=== PATIENT | female | born 1935 | race Caucasian/White ===

== ENCOUNTER 2018-02-24 09:12 | Emergency (ER) | payer MEDICARE, OTHER ==
[~2018-02-24] VITALS: Ht 160 cm; Wt 81.0 kg
[~2018-02-24 09:12] MED LIST: ADLT ASA LOW81 MG PO; ALPRAZOLAM0.25 MG PO; AMLODIPINE BESYL5 MG PO; ASA/BUT/CAFF OR; ASPIRIN325 MG PO; BUPROPION HCL100 MG PO; BUPROPION100 MG PO; CALCIUM600 M2 OR; CYMBALTA20 MG PO; CYMBALTA30 MG PO; CYTOTEC100 MCG OR; DICLOFENAC SODI50 M1 PO; DICLOFENAC75 MG OR; FISH OIL1000 MG OR; FISH OIL300 MG OR; FLEXERIL5 M1; FLEXERIL5 M1 PO; FLONASE NASAL50 MCG; FUROSEMIDE20 MG PO; GABAPENTIN300 MG PO; HYDRALAZINE25 MG PO; INDERAL10 M1 PO; KLOR-CON M15 OR; LEVOTHYROXIN100 MC1 PO; LOMOTIL2.5 MG; LOSARTAN POT50 MG PO; LOSARTAN POTASS50 MG PO; MAXIDE1 COMBO OR; MAXZIDE-2537.5 MG/TA PO; METO50TA52 PO; NEURONTIN300 MG; OMEPRAZOLE10 MG PO; PREDNISONE10 MG PO; PRILOSEC OTC20 MG; SYNTHROID100 MCG OR; VANCOMYCIN IV; VICODIN1 TAB OR; WELLBUTRI1; ZANTAC 150 OR; [UNRECOGNIZED DRUG - OTHER]; [UNRECOGNIZED DRUG - OTHER] OR; [UNRECOGNIZED DRUG - OTHER] PO
[2018-02-24] MEDS ORDERED: CLONIDINE0.1 MG PO (09:30)
[2018-02-24] MEDS ORDERED: ESCITALOPRAM OX10 MG PO (09:31)
[2018-02-24] MEDS ORDERED: HYDRALAZINE10 MG PO (09:32)
[2018-02-24] MEDS ORDERED: LOSARTAN POTASS50 MG PO (09:32)
[2018-02-24 09:47] LABS: HEMATOCRIT 34.5 % (37.0-47.0); HEMOGLOBIN 11.4 g/dl (12.0-16.0); IMMATURE GRANULOCYTES 0.4 % (0.0-5.0); MEAN CELL VOLUME 92.2 fL CALC (80.0-100.0); MEAN CORPUSCULAR HGB 30.5 pG CALC (26.0-32.0); NEUT# 8.47 thou/uL (2.00-7.15); RED BLOOD COUNT 3.74 mill/uL (4.20-5.60); RED CELL DISTRI WIDTH 12.9 % (11.5-15.5)
[2018-02-24 09:57] LABS: ALBUMIN 3.2 g/dL (3.2-5.0); ALKALINE PHOSPHATASE 76 u/l (38-126); ANION GAP 14 (6-22 (CALC)); BILIRUBIN, TOTAL 0.8 mg/dL (0.0-1.4); BUN 30 mg/dL (8-23); BUN/CREATININE RATIO 22 (12-20 (CALC)); CARBON DIOXIDE 23 mmol/l (22-30); CHLORIDE 104 mmol/l (95-108); CREATININE 1.4 mg/dL (0.5-1.0); GFR 36 ML/MIN (>=60 (CALC)); GFR FOR AFR.AMER. 43 ML/MIN (>=60 (CALC)); POTASSIUM 4.8 mmol/l (3.5-5.1); SGOT/AST 16 u/l (9-36); SGPT/ALT 23 u/l (11-66); SODIUM 136 mmol/l (137-146); TOTAL PROTEIN 5.8 g/dL (6.3-8.2)
[2018-02-24 10:09] LABS: MYOGLOBIN 90 ng/mL (0 - 62)
[2018-02-24 10:38] LABS: URINE BILIRUBIN - DIPSTICK NEGATIVE (NEGATIVE); URINE BLOOD DIPSTICK NEGATIVE (NEGATIVE); URINE COLOR YELLOW; URINE GLUCOSE - DIPSTICK NEGATIVE (NEGATIVE); URINE KETONE TRACE mg/dL (NEGATIVE); URINE LEUK ESTERASE TRACE (NEGATIVE); URINE NITRITE - DIPSTICK NEGATIVE (Negative); URINE PH 5.5 (4.5-8.0); URINE PROTEIN - DIPSTICK TRACE mg/dL (NEG-TRACE); URINE SPECIFIC GRAVITY 1.025; URINE UROBILINOGEN - DIPSTICK 0.2 E.U./dL (0.2)
[2018-02-24 10:40] LABS: URINE CLARITY CLEAR
[2018-02-24 11:03] LABS: TSH, 3RD GENERATION 1.19 uIU/mL (0.47 - 4.68)
[2018-02-24] MEDS ORDERED: ANTIVERT PO (12:50)
[2018-02-24] MEDS ORDERED: ZOFRAN ODT4 MG PO (12:51)
[2018-02-24 13:05] VITALS: BP 127/66
== END 2018-02-24 13:13 | disposition home or self-care (01) ==
LOC: ED 09:12
PROVIDERS: Emergency Medicine
DX: R42 Dizziness and giddiness (principal); E86.0 Dehydration; S13.9XXA Sprain of joints and ligaments of unspecified parts of neck, initial encounter; I10 Essential (primary) hypertension; G45.9 Transient cerebral ischemic attack, unspecified; X58.XXXA Exposure to other specified factors, initial encounter; R94.31 Abnormal electrocardiogram [ECG] [EKG]

== ENCOUNTER 2018-02-27 17:18 | Inpatient (IN) | payer MEDICARE, OTHER ==
[~2018-02-27] VITALS: Ht 160 cm; Wt 82.0 kg
[~2018-02-27 17:18] MED LIST changes: +ANTIVERT PO; +CLONIDINE0.1 MG PO; +ESCITALOPRAM OX10 MG PO; +HYDRALAZINE10 MG PO; +ZOFRAN ODT4 MG PO
[2018-02-27 18:29] LABS: HEMATOCRIT 34.4 % (37.0-47.0); HEMOGLOBIN 11.2 g/dl (12.0-16.0); IMMATURE GRANULOCYTES 0.6 % (0.0-5.0); MEAN CORPUSCULAR HGB 30.3 pG CALC (26.0-32.0); MEAN CORPUSCULAR HGB CONC 32.6 g/L CALC (32.0-36.0); NEUT# 8.96 thou/uL (2.00-7.15); RED BLOOD COUNT 3.7 mill/uL (4.20-5.60); RED CELL DISTRI WIDTH 12.6 % (11.5-15.5)
[2018-02-27 18:39] LABS: ALBUMIN 3.2 g/dL (3.2-5.0); BILIRUBIN, TOTAL 0.8 mg/dL (0.0-1.4); CREATININE 1.4 mg/dL (0.5-1.0); POTASSIUM 4.7 mmol/l (3.5-5.1); TOTAL PROTEIN 5.9 g/dL (6.3-8.2)
[2018-02-27 19:30] VITALS: BP 133/62
[2018-02-28] VITALS (7 sets, daily range): BP systolic 117–163; BP diastolic 48–69
[2018-02-28 06:03] LABS: HEMATOCRIT 34.1 % (37.0-47.0); HEMOGLOBIN 11.1 g/dl (12.0-16.0); IMMATURE GRANULOCYTES 0.7 % (0.0-5.0); MEAN CELL VOLUME 92.7 fL CALC (80.0-100.0); MEAN CORPUSCULAR HGB 30.2 pG CALC (26.0-32.0); MEAN CORPUSCULAR HGB CONC 32.6 g/L CALC (32.0-36.0); NEUT# 6.31 thou/uL (2.00-7.15); RED BLOOD COUNT 3.68 mill/uL (4.20-5.60); RED CELL DISTRI WIDTH 12.6 % (11.5-15.5)
[2018-02-28 06:16] LABS: CREATININE 1.1 mg/dL (0.5-1.0); POTASSIUM 4.6 mmol/l (3.5-5.1)
[2018-02-28 08:38] LABS: C. DIFFICILE TOXIN A&B NEGATIVE (NEGATIVE)
[2018-02-28 17:26] LABS: BARBITURATES NEGATIVE (NEGATIVE); COCAINE NEGATIVE (NEGATIVE); METHADONE NEGATIVE (NEGATIVE); OXCYCODONE NEGATIVE (NEGATIVE); TETRAHYDROCANNABIONOL NEGATIVE (NEGATIVE); TRICYLIC ANTIDEPRESSANTS NEGATIVE (NEGATIVE)
[2018-03-01 00:25] VITALS: BP 148/63
[2018-03-01 05:21] LABS: HEMATOCRIT 34.8 % (37.0-47.0); HEMOGLOBIN 11.2 g/dl (12.0-16.0); IMMATURE GRANULOCYTES 1.9 % (0.0-5.0); MEAN CORPUSCULAR HGB 29.9 pG CALC (26.0-32.0); MEAN CORPUSCULAR HGB CONC 32.2 g/L CALC (32.0-36.0); NEUT# 4.47 thou/uL (2.00-7.15); RED BLOOD COUNT 3.74 mill/uL (4.20-5.60); RED CELL DISTRI WIDTH 12.5 % (11.5-15.5)
[2018-03-01 05:37] LABS: ANION GAP 15 (6-22 (CALC)); BUN 14 mg/dL (8-23); BUN/CREATININE RATIO 16 (12-20 (CALC)); CARBON DIOXIDE 18 mmol/l (22-30); CHLORIDE 107 mmol/l (95-108); CREATININE 0.9 mg/dL (0.5-1.0); GFR 60 ML/MIN (>=60 (CALC)); GFR FOR AFR.AMER. > 60 ML/MIN (>=60 (CALC)); MAGNESIUM 1.7 mg/dL (1.6-2.3); POTASSIUM 4.6 mmol/l (3.5-5.1); SODIUM 135 mmol/l (137-146)
[2018-03-01 08:09] VITALS: BP 132/48
[2018-03-01 09:12] VITALS: BP 122/47
[2018-03-01 12:09] VITALS: BP 133/61
[2018-03-01 16:17] VITALS: BP 122/49
[2018-03-01 19:00] VITALS: BP 159/63
[2018-03-02 00:05] VITALS: BP 145/65
[2018-03-02 04:46] VITALS: BP 158/68
[2018-03-02 05:17] LABS: HEMATOCRIT 30.2 % (37.0-47.0); HEMOGLOBIN 9.9 g/dl (12.0-16.0); MEAN CELL VOLUME 92.1 fL CALC (80.0-100.0); MEAN CORPUSCULAR HGB 30.2 pG CALC (26.0-32.0); MEAN CORPUSCULAR HGB CONC 32.8 g/L CALC (32.0-36.0); RED BLOOD COUNT 3.28 mill/uL (4.20-5.60); RED CELL DISTRI WIDTH 12.4 % (11.5-15.5)
[2018-03-02 05:31] LABS: ANION GAP 10 (6-22 (CALC)); BUN 9 mg/dL (8-23); BUN/CREATININE RATIO 11 (12-20 (CALC)); CARBON DIOXIDE 21 mmol/l (22-30); CHLORIDE 109 mmol/l (95-108); CREATININE 0.8 mg/dL (0.5-1.0); GFR > 60 ML/MIN (>=60 (CALC)); GFR FOR AFR.AMER. > 60 ML/MIN (>=60 (CALC)); MAGNESIUM 1.5 mg/dL (1.6-2.3); POTASSIUM 4.4 mmol/l (3.5-5.1); SODIUM 136 mmol/l (137-146)
[2018-03-02 09:04] VITALS: BP 146/46
[2018-03-02 11:00] VITALS: BP 126/52
[2018-03-02] MEDS ORDERED: CIPROFLOXACN500 MG PO (11:15)
[2018-03-02] MEDS ORDERED: METRONIDAZOL500 MG PO (11:15)
[2018-03-02] MEDS ORDERED: ALPRAZOLAM0.25 MG PO (11:15)
[2018-03-02] MEDS ORDERED: FLORASTOR250 M1 PO (11:15)
== END 2018-03-02 14:49 | DRG 682 ==
LOC: MS2 17:18
PROVIDERS: Internal Medicine; Nurse Practitioner Family; ADMIT Internal Medicine; ATTEND Internal Medicine
DX: N17.9 Acute kidney failure, unspecified (principal); G93.40 Encephalopathy, unspecified; E86.0 Dehydration; K52.9 Noninfective gastroenteritis and colitis, unspecified; I12.9 Hypertensive chronic kidney disease with stage 1 through stage 4 chronic kidney disease, or unspecified chronic kidney disease; N18.9 Chronic kidney disease, unspecified; E03.9 Hypothyroidism, unspecified; F41.9 Anxiety disorder, unspecified; F32.9 Major depressive disorder, single episode, unspecified; E78.5 Hyperlipidemia, unspecified; M19.90 Unspecified osteoarthritis, unspecified site; Z86.73 Personal history of transient ischemic attack (TIA), and cerebral infarction without residual deficits
CPT/HCPCS: J1650

== ENCOUNTER 2018-07-25 11:04 | Observation (INO) | payer MEDICARE, OTHER ==
[2018-07-25] VITALS (14 sets, daily range): BP systolic 117–183; BP diastolic 50–112
[~2018-07-25] VITALS: Ht 154.9 cm; Wt 79.0 kg
[~2018-07-25 11:04] MED LIST changes: +ACETAMINOPHEN P1 TA2 PO; +B121000 MCG PO; +BL POTASSIUM99 MG PO; +CIPROFLOXACN500 MG PO; +D3 PO; +DULOXETINE PO; +FLORASTOR250 M1 PO; +LASIX20 MG PO; +LOSARTAN POT100 MG PO; +LUTEIN PO; +MECLIZINE25 MG PO; +METRONIDAZOL500 MG PO; +VITAMIN A PO; +[UNRECOGNIZED DRUG - OTHER] PO
[2018-07-25 11:49] LABS: URINE BILIRUBIN - DIPSTICK NEGATIVE (NEGATIVE); URINE BLOOD DIPSTICK NEGATIVE (NEGATIVE); URINE COLOR YELLOW; URINE GLUCOSE - DIPSTICK NEGATIVE (NEGATIVE); URINE KETONE NEGATIVE (NEGATIVE); URINE LEUK ESTERASE NEGATIVE (NEGATIVE); URINE NITRITE - DIPSTICK NEGATIVE (Negative); URINE PH 5.5 (4.5-8.0); URINE PROTEIN - DIPSTICK NEGATIVE (NEG-TRACE); URINE SPECIFIC GRAVITY 1.015; URINE UROBILINOGEN - DIPSTICK 0.2 E.U./dL (0.2)
[2018-07-25 11:53] LABS: HEMATOCRIT 40.2 % (37.0-47.0); HEMOGLOBIN 13.4 g/dl (12.0-16.0); IMMATURE GRANULOCYTES 0.4 % (0.0-5.0); MEAN CELL VOLUME 93.5 fL CALC (80.0-100.0); MEAN CORPUSCULAR HGB 31.2 pG CALC (26.0-32.0); MEAN CORPUSCULAR HGB CONC 33.3 g/L CALC (32.0-36.0); NEUT# 5.59 thou/uL (2.00-7.15); RED BLOOD COUNT 4.3 mill/uL (4.20-5.60); RED CELL DISTRI WIDTH 13.6 % (11.5-15.5)
[2018-07-25 12:05] LABS: ALKALINE PHOSPHATASE 82 u/l (38-126); ANION GAP 14 (6-22 (CALC)); BILIRUBIN, TOTAL 0.6 mg/dL (0.0-1.4); BUN 17 mg/dL (8-23); BUN/CREATININE RATIO 22 (12-20 (CALC)); CARBON DIOXIDE 24 mmol/l (22-30); CHLORIDE 106 mmol/l (95-108); CREATININE 0.8 mg/dL (0.5-1.0); GFR > 60 ML/MIN (>=60 (CALC)); GFR FOR AFR.AMER. > 60 ML/MIN (>=60 (CALC)); SGOT/AST 21 u/l (9-36); SODIUM 140 mmol/l (137-146); TOTAL PROTEIN 7.2 g/dL (6.3-8.2)
[2018-07-25 12:17] LABS: MYOGLOBIN 47 ng/mL (0 - 62)
[2018-07-26] VITALS (22 sets, daily range): BP systolic 146–223; BP diastolic 54–117
[2018-07-26 05:25] LABS: HEMATOCRIT 39.6 % (37.0-47.0); HEMOGLOBIN 13.2 g/dl (12.0-16.0); IMMATURE GRANULOCYTES 0.4 % (0.0-5.0); MEAN CELL VOLUME 93.8 fL CALC (80.0-100.0); MEAN CORPUSCULAR HGB 31.3 pG CALC (26.0-32.0); MEAN CORPUSCULAR HGB CONC 33.3 g/L CALC (32.0-36.0); NEUT# 6.81 thou/uL (2.00-7.15); RED BLOOD COUNT 4.22 mill/uL (4.20-5.60); RED CELL DISTRI WIDTH 13.6 % (11.5-15.5)
[2018-07-26 05:41] LABS: ALBUMIN 3.5 g/dL (3.2-5.0); ALKALINE PHOSPHATASE 76 u/l (38-126); ANION GAP 13 (6-22 (CALC)); BUN 15 mg/dL (8-23); BUN/CREATININE RATIO 23 (12-20 (CALC)); CARBON DIOXIDE 24 mmol/l (22-30); CHLORIDE 104 mmol/l (95-108); CREATININE 0.7 mg/dL (0.5-1.0); GFR > 60 ML/MIN (>=60 (CALC)); GFR FOR AFR.AMER. > 60 ML/MIN (>=60 (CALC)); MAGNESIUM 1.7 mg/dL (1.6-2.3); POTASSIUM 3.8 mmol/l (3.5-5.1); SGOT/AST 21 u/l (9-36); SODIUM 137 mmol/l (137-146); TOTAL PROTEIN 6.4 g/dL (6.3-8.2)
[2018-07-27] VITALS (9 sets, daily range): BP systolic 153–207; BP diastolic 51–88
[2018-07-27 05:30] LABS: HEMATOCRIT 40.8 % (37.0-47.0); HEMOGLOBIN 13.8 g/dl (12.0-16.0); IMMATURE GRANULOCYTES 0.4 % (0.0-5.0); MEAN CELL VOLUME 91.9 fL CALC (80.0-100.0); MEAN CORPUSCULAR HGB 31.1 pG CALC (26.0-32.0); MEAN CORPUSCULAR HGB CONC 33.8 g/L CALC (32.0-36.0); NEUT# 6.74 thou/uL (2.00-7.15); RED BLOOD COUNT 4.44 mill/uL (4.20-5.60); RED CELL DISTRI WIDTH 13.6 % (11.5-15.5)
[2018-07-27 05:37] LABS: ALBUMIN 3.6 g/dL (3.2-5.0); ALKALINE PHOSPHATASE 77 u/l (38-126); ANION GAP 13 (6-22 (CALC)); BILIRUBIN, TOTAL 0.9 mg/dL (0.0-1.4); BUN 18 mg/dL (8-23); BUN/CREATININE RATIO 26 (12-20 (CALC)); CARBON DIOXIDE 23 mmol/l (22-30); CHLORIDE 103 mmol/l (95-108); CREATININE 0.7 mg/dL (0.5-1.0); GFR > 60 ML/MIN (>=60 (CALC)); GFR FOR AFR.AMER. > 60 ML/MIN (>=60 (CALC)); MAGNESIUM 1.7 mg/dL (1.6-2.3); POTASSIUM 4.1 mmol/l (3.5-5.1); SGOT/AST 22 u/l (9-36); SODIUM 135 mmol/l (137-146); TOTAL PROTEIN 6.5 g/dL (6.3-8.2)
[2018-07-28 00:01] VITALS: BP 165/81
[2018-07-28 04:44] VITALS: BP 166/67
[2018-07-28 05:44] LABS: HEMATOCRIT 40.9 % (37.0-47.0); HEMOGLOBIN 13.6 g/dl (12.0-16.0); IMMATURE GRANULOCYTES 0.3 % (0.0-5.0); MEAN CELL VOLUME 92.7 fL CALC (80.0-100.0); MEAN CORPUSCULAR HGB 30.8 pG CALC (26.0-32.0); MEAN CORPUSCULAR HGB CONC 33.3 g/L CALC (32.0-36.0); NEUT# 6.61 thou/uL (2.00-7.15); RED BLOOD COUNT 4.41 mill/uL (4.20-5.60); RED CELL DISTRI WIDTH 13.4 % (11.5-15.5)
[2018-07-28 06:07] LABS: ALBUMIN 3.6 g/dL (3.2-5.0); ALKALINE PHOSPHATASE 76 u/l (38-126); ANION GAP 14 (6-22 (CALC)); BILIRUBIN, TOTAL 1.1 mg/dL (0.0-1.4); BUN 19 mg/dL (8-23); BUN/CREATININE RATIO 26 (12-20 (CALC)); CARBON DIOXIDE 23 mmol/l (22-30); CHLORIDE 102 mmol/l (95-108); CREATININE 0.8 mg/dL (0.5-1.0); GFR > 60 ML/MIN (>=60 (CALC)); GFR FOR AFR.AMER. > 60 ML/MIN (>=60 (CALC)); MAGNESIUM 1.7 mg/dL (1.6-2.3); SGOT/AST 23 u/l (9-36); SODIUM 135 mmol/l (137-146); TOTAL PROTEIN 6.4 g/dL (6.3-8.2)
[2018-07-28 07:53] VITALS: BP 164/68
[2018-07-28 11:43] VITALS: BP 160/64
[2018-07-28] MEDS ORDERED: CARVEDILOL6.25 MG PO (15:09)
[2018-07-28] MEDS ORDERED: LOSARTAN POT50 MG PO (15:09)
[2018-07-28] MEDS ORDERED: CARDIZEM CD120 M1 PO (15:09)
[2018-07-28] MEDS ORDERED: ATIVAN1 MG PO (15:10)
[2018-07-28] MEDS ORDERED: PANTOPRAZOLE SO40 M1 PO (15:11)
[2018-07-28] MEDS ORDERED: LEVOTHYROXIN100 MC1 PO (15:11)
== END 2018-07-28 17:02 | disposition home health service (06) ==
LOC: ED 11:04 → ED-I 13:54 → ED 14:14 → ICU 14:15 → MS2 07-26 16:43
PROVIDERS: ADMIT Internal Medicine Nephrology; ATTEND Internal Medicine Nephrology
DX: I16.1 Hypertensive emergency (principal); I10 Essential (primary) hypertension; E03.9 Hypothyroidism, unspecified; F41.1 Generalized anxiety disorder; E78.5 Hyperlipidemia, unspecified; Z86.73 Personal history of transient ischemic attack (TIA), and cerebral infarction without residual deficits; Z96.651 Presence of right artificial knee joint; Z63.4 Disappearance and death of family member; R07.9 Chest pain, unspecified
CPT/HCPCS: J2060

== ENCOUNTER → 2018-09-22 | Outpatient (REF) | payer MEDICARE, OTHER ==
[~2018-09-22] MED LIST changes: +ACETAMINOPHEN500 MG PO; +ALLERGY RELF10 M3 PO; +ATIVAN1 MG PO; +CARDIZEM CD120 M1 PO; +CARVEDILOL3.125 MG PO; +CARVEDILOL6.25 MG PO; +COREG12.5 MG PO; +DICLOFENAC SODI1.5 % TOP; +DICLOFENAC SODI50 MG PO; +GAS RELIEF80 MG PO; +LASIX 20 MG TAB20 MG PO; +PANTOPRAZOLE SO40 M1 PO; +TGT OMEPRAZ20 MG PO; +XANAX0.25 MG PO
[2018-09-22 13:02] LABS: HEMATOCRIT 38.9 % (37.0-47.0); HEMOGLOBIN 13.2 g/dl (12.0-16.0); MEAN CELL VOLUME 93.1 fL CALC (80.0-100.0); MEAN CORPUSCULAR HGB 31.6 pG CALC (26.0-32.0); MEAN CORPUSCULAR HGB CONC 33.9 g/L CALC (32.0-36.0); RED BLOOD COUNT 4.18 mill/uL (4.20-5.60); RED CELL DISTRI WIDTH 12.4 % (11.5-15.5)
[2018-09-22 13:21] LABS: ALBUMIN 4.3 g/dL (3.2-5.0); ALKALINE PHOSPHATASE 81 u/l (38-126); ANION GAP 14 (6-22 (CALC)); BILIRUBIN, TOTAL 0.8 mg/dL (0.0-1.4); BUN 13 mg/dL (8-23); BUN/CREATININE RATIO 18 (12-20 (CALC)); CALCULATED LDLCHOLESTEROL 85 mg/dL (62-129 (CALC)); CARBON DIOXIDE 24 mmol/l (22-30); CHLORIDE 106 mmol/l (95-108); CHOLESTEROL HDL RATIO 2.8 (<4.4 (CALC)); CREATININE 0.7 mg/dL (0.5-1.0); GFR > 60 ML/MIN (>=60 (CALC)); GFR FOR AFR.AMER. > 60 ML/MIN (>=60 (CALC)); HDL CHOLESTEROL 64 mg/dL (>=40); POTASSIUM 3.5 mmol/l (3.5-5.1); SGOT/AST 20 u/l (9-36); SODIUM 141 mmol/l (137-146); TOTAL CHOLESTEROL 181 mg/dl (0-199); TOTAL PROTEIN 7.1 g/dL (6.3-8.2); TOTAL TRIGLYCERIDES 155 mg/dl (30-149); VLDL CHOLESTROL 31 mg/dl (0-48 (CALC))
== END | disposition home or self-care (01) ==
LOC: LAB 12:27
PROVIDERS: ATTEND Internal Medicine
DX: E03.9 Hypothyroidism, unspecified (principal); F41.9 Anxiety disorder, unspecified; I10 Essential (primary) hypertension; Z86.73 Personal history of transient ischemic attack (TIA), and cerebral infarction without residual deficits

== ENCOUNTER 2018-10-03 12:30 | Outpatient (RCR) | payer MEDICARE, OTHER ==
--- NOTE | 2018-09-29 12:04 | NUR ---
Pt. in for treatment team and IOP. Pt. is clean and neat. Alert and oriented times 3. Mood tearful and sad. Affect blunted. Pt. states her [id number] "took my keys and I'm not to drive. She also took my Cymbalta and my arthritis meds are gone". Pt. is scheduled to see PCP, Dr. Laboy, next week. Pt. is informed to discuss medications with her PCP by Hemant Duncan APRN. Pt. is given a copy of medication log by the Program Nurse. Pt. denies any suicidal ideations. Pt. states she will follow up with her medications and report back to the Program Nurse following her appointment with her PCP. Pt. to continue with her current treatment plan. Pt. is attending IOP 2 times a week with a monthly 1:1. Will follow up with the Pt. in one month. Treatment team is concluded.
[~2018-10-03 12:30] MED LIST changes: -CARVEDILOL3.125 MG PO; -DICLOFENAC SODI50 MG PO
[2018-10-10] MEDS ORDERED: CARVEDILOL3.125 MG PO (12:16)
[2018-10-10] MEDS ORDERED: DICLOFENAC SODI50 MG PO (12:17)
== END 2018-10-05 23:59 | disposition still patient (30) ==
LOC: SLIP3 12:30
PROVIDERS: ATTEND Specialist
DX: F41.1 Generalized anxiety disorder (principal); F41.0 Panic disorder [episodic paroxysmal anxiety]; F33.1 Major depressive disorder, recurrent, moderate

== ENCOUNTER 2019-06-10 17:14 | Emergency (ER) | payer MEDICARE, OTHER ==
[~2019-06-10] VITALS: Ht 154.9 cm; Wt 72.0 kg
[~2019-06-10 17:14] MED LIST changes: +CARVEDILOL3.125 MG PO; +DICLOFENAC SODI50 MG PO
[2019-06-10 18:06] LABS: HEMATOCRIT 36.4 % (37.0-47.0); HEMOGLOBIN 12.4 g/dl (12.0-16.0); IMMATURE GRANULOCYTES 0.4 % (0.0-5.0); MEAN CELL VOLUME 91.7 fL CALC (80.0-100.0); MEAN CORPUSCULAR HGB 31.2 pG CALC (26.0-32.0); MEAN CORPUSCULAR HGB CONC 34.1 g/L CALC (32.0-36.0); NEUT# 5.91 thou/uL (2.00-7.15); RED BLOOD COUNT 3.97 mill/uL (4.20-5.60); RED CELL DISTRI WIDTH 11.7 % (11.5-15.5)
[2019-06-10 18:19] LABS: ALBUMIN 4.2 g/dL (3.2-5.0); ALKALINE PHOSPHATASE 91 u/l (38-126); ANION GAP 15 (6-22 (CALC)); BILIRUBIN, TOTAL 0.7 mg/dL (0.0-1.4); BUN 19 mg/dL (8-23); BUN/CREATININE RATIO 24 (12-20 (CALC)); CARBON DIOXIDE 21 mmol/l (22-30); CHLORIDE 95 mmol/l (95-108); CREATININE 0.8 mg/dL (0.5-1.0); GFR > 60 ML/MIN (>=60 (CALC)); GFR FOR AFR.AMER. > 60 ML/MIN (>=60 (CALC)); POTASSIUM 4.1 mmol/l (3.5-5.1); SGOT/AST 21 u/l (9-36); TOTAL PROTEIN 7.2 g/dL (6.3-8.2)
[2019-06-10 18:22] LABS: SODIUM 127 mmol/l (137-146)
[2019-06-10 18:27] LABS: URINE BILIRUBIN - DIPSTICK NEGATIVE (NEGATIVE); URINE BLOOD DIPSTICK NEGATIVE (NEGATIVE); URINE COLOR YELLOW; URINE GLUCOSE - DIPSTICK NEGATIVE (NEGATIVE); URINE KETONE NEGATIVE (NEGATIVE); URINE LEUK ESTERASE NEGATIVE (NEGATIVE); URINE NITRITE - DIPSTICK NEGATIVE (Negative); URINE PH 5.5 (4.5-8.0); URINE PROTEIN - DIPSTICK NEGATIVE (NEG-TRACE); URINE UROBILINOGEN - DIPSTICK 0.2 E.U./dL (0.2)
[2019-06-10 18:31] LABS: MYOGLOBIN 33 ng/mL (0 - 62)
[2019-06-10] MEDS ORDERED: ONDANSETRON4 MG PO (18:59)
[2019-06-10] MEDS ORDERED: ANTIVERT PO (18:59)
[2019-06-10 19:24] VITALS: BP 162/56
== END 2019-06-10 20:03 | disposition home or self-care (01) ==
LOC: ED 17:14
PROVIDERS: Emergency Medicine
DX: R42 Dizziness and giddiness (principal); I10 Essential (primary) hypertension; Z86.73 Personal history of transient ischemic attack (TIA), and cerebral infarction without residual deficits; I45.10 Unspecified right bundle-branch block

== ENCOUNTER 2019-07-04 16:46 | Emergency (ER) | payer MEDICARE, OTHER ==
[~2019-07-04] VITALS: Ht 154.9 cm; Wt 81.8 kg
[~2019-07-04 16:46] MED LIST changes: +ONDANSETRON4 MG PO
[2019-07-04 17:55] LABS: HEMATOCRIT 38.7 % (37.0-47.0); HEMOGLOBIN 13.1 g/dl (12.0-16.0); IMMATURE GRANULOCYTES 0.5 % (0.0-5.0); MEAN CELL VOLUME 92.4 fL CALC (80.0-100.0); MEAN CORPUSCULAR HGB 31.3 pG CALC (26.0-32.0); MEAN CORPUSCULAR HGB CONC 33.9 g/L CALC (32.0-36.0); NEUT# 7.89 thou/uL (2.00-7.15); RED BLOOD COUNT 4.19 mill/uL (4.20-5.60); RED CELL DISTRI WIDTH 12.4 % (11.5-15.5)
[2019-07-04 18:12] LABS: ALBUMIN 4.5 g/dL (3.2-5.0); ALKALINE PHOSPHATASE 72 u/l (38-126); ANION GAP 17 (6-22 (CALC)); BILIRUBIN, TOTAL 0.6 mg/dL (0.0-1.4); BUN 53 mg/dL (8-23); CARBON DIOXIDE 24 mmol/l (22-30); CHLORIDE 97 mmol/l (95-108); ETHYL ALCOHOL 0 mg/dl (0-30); LIPASE 161 u/l (23-300); MAGNESIUM 1.9 mg/dL (1.6-2.3); SGOT/AST 24 u/l (9-36); TOTAL PROTEIN 7.8 g/dL (6.3-8.2)
[2019-07-04 18:16] LABS: BUN/CREATININE RATIO 29 (12-20 (CALC)); CREATININE 1.8 mg/dL (0.5-1.0); GFR 27 ML/MIN (>=60 (CALC)); GFR FOR AFR.AMER. 32 ML/MIN (>=60 (CALC)); SODIUM 134 mmol/l (137-146)
[2019-07-04 19:33] LABS: URINE BILIRUBIN - DIPSTICK NEGATIVE (NEGATIVE); URINE BLOOD DIPSTICK NEGATIVE (NEGATIVE); URINE COLOR YELLOW; URINE GLUCOSE - DIPSTICK NEGATIVE (NEGATIVE); URINE KETONE NEGATIVE (NEGATIVE); URINE LEUK ESTERASE NEGATIVE (NEGATIVE); URINE NITRITE - DIPSTICK NEGATIVE (Negative); URINE PH 5.5 (4.5-8.0); URINE PROTEIN - DIPSTICK NEGATIVE (NEG-TRACE); URINE SPECIFIC GRAVITY 1.025; URINE UROBILINOGEN - DIPSTICK 0.2 E.U./dL (0.2)
[2019-07-04 20:00] VITALS: BP 163/76
== END 2019-07-04 20:20 | disposition home or self-care (01) ==
LOC: ED 16:46
DX: N17.9 Acute kidney failure, unspecified (principal); E86.0 Dehydration; I12.9 Hypertensive chronic kidney disease with stage 1 through stage 4 chronic kidney disease, or unspecified chronic kidney disease; N18.9 Chronic kidney disease, unspecified; Z86.73 Personal history of transient ischemic attack (TIA), and cerebral infarction without residual deficits

== ENCOUNTER 2019-07-06 10:54 | Observation (INO) | payer MEDICARE, OTHER ==
[~2019-07-06] VITALS: Ht 162.6 cm; Wt 79.9 kg
[2019-07-06 11:46] LABS: HEMATOCRIT 36.9 % (37.0-47.0); HEMOGLOBIN 12.4 g/dl (12.0-16.0); IMMATURE GRANULOCYTES 0.4 % (0.0-5.0); MEAN CELL VOLUME 93.7 fL CALC (80.0-100.0); MEAN CORPUSCULAR HGB 31.5 pG CALC (26.0-32.0); MEAN CORPUSCULAR HGB CONC 33.6 g/L CALC (32.0-36.0); NEUT# 5.34 thou/uL (2.00-7.15); RED BLOOD COUNT 3.94 mill/uL (4.20-5.60); RED CELL DISTRI WIDTH 11.9 % (11.5-15.5)
[2019-07-06 12:48] LABS: ACT PARTIAL THROMBO TIME 24.6 SECONDS (20.0-32.5); PROTHROMBIN TIME 10.1 SECONDS (9.0-12.5)
[2019-07-06 12:55] LABS: ALBUMIN 3.9 g/dL (3.2-5.0); ALKALINE PHOSPHATASE 65 u/l (38-126); ANION GAP 13 (6-22 (CALC)); BILIRUBIN, TOTAL 0.7 mg/dL (0.0-1.4); BUN 18 mg/dL (8-23); CARBON DIOXIDE 25 mmol/l (22-30); CHLORIDE 98 mmol/l (95-108); CPK 27 u/l (30-165); ETHYL ALCOHOL 0 mg/dl (0-30); LIPASE 77 u/l (23-300); MAGNESIUM 1.9 mg/dL (1.6-2.3); POTASSIUM 3.9 mmol/l (3.5-5.1); SGOT/AST 27 u/l (9-36); SODIUM 131 mmol/l (137-146); TOTAL PROTEIN 6.9 g/dL (6.3-8.2)
[2019-07-06 13:03] LABS: BUN/CREATININE RATIO 26 (12-20 (CALC)); CREATININE 0.7 mg/dL (0.5-1.0); GFR > 60 ML/MIN (>=60 (CALC)); GFR FOR AFR.AMER. > 60 ML/MIN (>=60 (CALC))
[2019-07-06 13:24] LABS: TSH, 3RD GENERATION 0.61 uIU/mL (0.47 - 4.68)
[2019-07-06 13:45] LABS: URINE BILIRUBIN - DIPSTICK NEGATIVE (NEGATIVE); URINE BLOOD DIPSTICK NEGATIVE (NEGATIVE); URINE COLOR YELLOW; URINE GLUCOSE - DIPSTICK NEGATIVE (NEGATIVE); URINE KETONE NEGATIVE (NEGATIVE); URINE LEUK ESTERASE NEGATIVE (NEGATIVE); URINE NITRITE - DIPSTICK NEGATIVE (Negative); URINE PH 6.5 (4.5-8.0); URINE PROTEIN - DIPSTICK NEGATIVE (NEG-TRACE); URINE SPECIFIC GRAVITY <=1.005; URINE UROBILINOGEN - DIPSTICK 0.2 E.U./dL (0.2)
[2019-07-06 15:42] LABS: BARBITURATES NEGATIVE (NEGATIVE); COCAINE NEGATIVE (NEGATIVE); METHADONE NEGATIVE (NEGATIVE); OXCYCODONE NEGATIVE (NEGATIVE); TETRAHYDROCANNABIONOL NEGATIVE (NEGATIVE); TRICYLIC ANTIDEPRESSANTS NEGATIVE (NEGATIVE)
[2019-07-06 15:58] LABS: TSH, 3RD GENERATION 0.61 uIU/mL (0.47 - 4.68)
[2019-07-06 17:09] VITALS: BP 155/53; BP 159/104; BP 161/79
[2019-07-06 19:00] VITALS: BP 143/61
[2019-07-06 23:00] VITALS: BP 146/53
[2019-07-07 03:00] VITALS: BP 162/69
[2019-07-07 06:10] LABS: ANION GAP 13 (6-22 (CALC)); BUN 16 mg/dL (8-23); BUN/CREATININE RATIO 26 (12-20 (CALC)); CARBON DIOXIDE 23 mmol/l (22-30); CHLORIDE 100 mmol/l (95-108); CREATININE 0.6 mg/dL (0.5-1.0); GFR > 60 ML/MIN (>=60 (CALC)); GFR FOR AFR.AMER. > 60 ML/MIN (>=60 (CALC)); POTASSIUM 4.3 mmol/l (3.5-5.1); SODIUM 132 mmol/l (137-146)
[2019-07-07 07:00] VITALS: BP 156/63
[2019-07-07 08:21] VITALS: BP 172/66
[2019-07-07 09:17] LABS: HEMATOCRIT 35.5 % (37.0-47.0); IMMATURE GRANULOCYTES 0.6 % (0.0-5.0); MEAN CELL VOLUME 93.7 fL CALC (80.0-100.0); MEAN CORPUSCULAR HGB 31.7 pG CALC (26.0-32.0); MEAN CORPUSCULAR HGB CONC 33.8 g/L CALC (32.0-36.0); NEUT# 7.01 thou/uL (2.00-7.15); RED BLOOD COUNT 3.79 mill/uL (4.20-5.60); RED CELL DISTRI WIDTH 12.1 % (11.5-15.5)
[2019-07-07 09:30] VITALS: BP 166/66
[2019-07-07 11:30] VITALS: BP 178/68
== END 2019-07-07 13:14 | disposition home or self-care (01) ==
LOC: ED 10:54 → ED-I 13:47 → ED 13:50 → ICU 14:00
PROVIDERS: ADMIT Internal Medicine; ATTEND Internal Medicine
DX: R42 Dizziness and giddiness (principal); E87.1 Hypo-osmolality and hyponatremia; I10 Essential (primary) hypertension; F41.9 Anxiety disorder, unspecified; F32.9 Major depressive disorder, single episode, unspecified; E03.9 Hypothyroidism, unspecified; E78.5 Hyperlipidemia, unspecified; M19.90 Unspecified osteoarthritis, unspecified site; Z86.73 Personal history of transient ischemic attack (TIA), and cerebral infarction without residual deficits

== ENCOUNTER 2019-07-20 14:59 | Observation (INO) | payer MEDICARE, OTHER ==
[~2019-07-20] VITALS: Ht 160 cm; Wt 80.0 kg
--- NOTE | 2019-07-20 11:45 | NUR ---
PT ASSISTED TO THE BATHROOM. PT ENCOURAGED TO CALL FOR ASSISTANCE WHEN FINISHED. SAFETY PRECAUTIONS IN PLACE. WILL CONTINUE TO MONITOR.
--- NOTE | 2019-07-20 15:40 | NUR ---
PT HAD COME A DIRECT ADMIT VIA WHEELCHAIR BY DAUGHTER IN LAW. ASSESSMENT DONE. PT IS A&O X2 BUT FORGETFUL AT TIMES. RESPS EVEN AND UNLABORED. PO FLUIDS PROVIDED. SAFETY PRECAUTIONS REINFORCED AND CALL LIGHT IN REACH.
[2019-07-20 16:12] VITALS: BP 138/59
[2019-07-20] MEDS ORDERED: DIOVAN160 MG PO (16:24)
[2019-07-20] MEDS ORDERED: CYMBALTA20 MG PO (16:26)
[2019-07-20] MEDS ORDERED: VOLTAREN1%GEL TOP (16:30)
--- NOTE | 2019-07-20 19:05 | NUR ---
REPORT RECEIVED FROM JOHN JEFF. PT RESTING IN BED. NO S/S OF DISTRESS AT THIS TIME. SAFETY PRECAUTIONS IN PLACE. WILL CONTINUE TO MONITOR.
[2019-07-20 19:38] VITALS: BP 136/66
--- NOTE | 2019-07-20 20:10 | NUR ---
PT RESTING IN BED. ALERT AND ORIENTED. RESPIRATIONS EVEN AND UNLABORED ON RA. LUNGS SOUND CLEAR. PULSES WEAK. PT DENIES ANY PAIN OR DISCOMFORT. #22 RFA NS @ 100 ML/HR, SITE APPEARS HEALTHY. CALL LOPEZ WITHIN REACH. WILL CONTINUE TO MONITOR.
[2019-07-21] VITALS (7 sets, daily range): BP systolic 112–162; BP diastolic 34–74
--- NOTE | 2019-07-21 03:59 | NUR ---
PT RESTING IN BED. RESPIRATIONS EVEN AND UNLABORED ON RA. NO S/S OF DISTRESS AT THIS TIME. SAFETY PRECAUTIONS IN PLACE. WILL CONTINUE TO MONITOR.
[2019-07-21 05:38] LABS: HEMATOCRIT 30.3 % (37.0-47.0); HEMOGLOBIN 10.2 g/dl (12.0-16.0); IMMATURE GRANULOCYTES 1.1 % (0.0-5.0); MEAN CELL VOLUME 92.1 fL CALC (80.0-100.0); MEAN CORPUSCULAR HGB CONC 33.7 g/L CALC (32.0-36.0); NEUT# 6.8 thou/uL (2.00-7.15); RED BLOOD COUNT 3.29 mill/uL (4.20-5.60); RED CELL DISTRI WIDTH 12.8 % (11.5-15.5)
[2019-07-21 06:09] LABS: CREATININE 1.2 mg/dL (0.5-1.0); POTASSIUM 3.4 mmol/l (3.5-5.1)
[2019-07-21 06:10] LABS: MAGNESIUM 1.4 mg/dL (1.6-2.3)
--- NOTE | 2019-07-21 08:00 | NUR ---
PT SEEN AWAKE, ALERT, ORIENTED X 3, MATCH-E-BE-NASH-SHE-WISH BAND. LUNGS CLEAR, RA. PT AMBULATORY TO BR, TAKING PUMP WITH HER. PT STATES DIARRHEA. IVF CONTINUES. NO REPORT OF PAIN, NO EVIDENCE OF DISTRESS.
--- NOTE | 2019-07-21 10:43 | NUR ---
DAUGHTER PETER HAS CALLED FOR UPDATE, LEAVES [phone] CONTACT NUMBER.
--- NOTE | 2019-07-21 12:00 | NUR ---
PT UP IN ROOM, TO BR NEEDED. NO CHANGE IN STATUS SHE IS SEEN IN BED OR IN CHAIR READING.
--- NOTE | 2019-07-21 16:00 | NUR ---
PT SEEN BY DR PANTOJA THIS AFTERNOON. PT PROVIDED WITH IMODIUM PER CONTINUED DIARRHEA. PT AMBULATORY TO BR WHEN SHE NEEDS TO USE TOILET, STATES THAT SHE DOES NOT HAVE MUCH WARNING. PT FEELS WEAK.
--- NOTE | 2019-07-21 19:00 | NUR ---
REPORT RECEIVED FROM JOHN HAM. PT RESTING IN BED. NO S/S OF DISTRESS AT THIS TIME. SAFETY PRECAUTIONS IN PLACE. WILL CONTINUE TO MONITOR.
--- NOTE | 2019-07-21 19:45 | NUR ---
PT RESTING IN BED. ALERT AND ORIENTED. POC DISCUSSED WITH PT. RESPIRATIONS EVEN AND UNLABORED ON RA. LUNGS SOUND CLEAR. PEDAL PULSES STRONG. PT DENIES ANY PAIN OR DISCOMFORT. #22 RFA PATENT AND APEARS HEALTHY. CALL LOPEZ WITHIN REACH. WILL CONTINUE TO MONITOR.
--- NOTE | 2019-07-21 23:25 | NUR ---
PT RESTING IN BED. RESPIRATIONS EVEN AND UNLABORED ON RA. NO S/S OF DISTRESS AT THIS TIME. WILL CONTINUE TO MONITOR.
[2019-07-22 03:55] VITALS: BP 152/68
--- NOTE | 2019-07-22 03:56 | NUR ---
PT RESTING IN BED RESPIRATIONS EVEN AND UNLABORED ON RA. NO S/S OF DISTRESS AT THIS TIME. SAFETY PRECAUTIONS IN PLACE. WILL CONTINUE TO MONITOR.
[2019-07-22 05:23] LABS: HEMOGLOBIN 11.3 g/dl (12.0-16.0); IMMATURE GRANULOCYTES 1.7 % (0.0-5.0); MEAN CELL VOLUME 91.4 fL CALC (80.0-100.0); MEAN CORPUSCULAR HGB 31.3 pG CALC (26.0-32.0); MEAN CORPUSCULAR HGB CONC 34.2 g/L CALC (32.0-36.0); NEUT# 5.56 thou/uL (2.00-7.15); RED BLOOD COUNT 3.61 mill/uL (4.20-5.60); RED CELL DISTRI WIDTH 12.7 % (11.5-15.5)
[2019-07-22 05:54] LABS: ANION GAP 14 (6-22 (CALC)); BUN 18 mg/dL (8-23); BUN/CREATININE RATIO 23 (12-20 (CALC)); CARBON DIOXIDE 17 mmol/l (22-30); CHLORIDE 110 mmol/l (95-108); CREATININE 0.8 mg/dL (0.5-1.0); GFR > 60 ML/MIN (>=60 (CALC)); GFR FOR AFR.AMER. > 60 ML/MIN (>=60 (CALC)); POTASSIUM 3.5 mmol/l (3.5-5.1); SODIUM 137 mmol/l (137-146)
[2019-07-22 07:22] VITALS: BP 145/54
--- NOTE | 2019-07-22 08:00 | NUR ---
PT IS AWAKE, ALERT, ORIENTED X 3, OOB IN CHAIR THIS MORNING. PT STATES SHE HAS SOME ABDOMINAL DISCOMFORT FROM THE CONTRAST LAST NIGHT, HELPED BY BELCHING TO RELIEVE PRESSURE. PT AMBULATORY IN ROOM. PT WITH HEADACHE PAIN, PROVIDED TYLENOL FOR SAME. PT EATING BREAKFAST WITHOUT COMPLAINT OF NAUSEA.
--- NOTE | 2019-07-22 12:00 | NUR ---
PT ENJOYS VISITORS THIS MORNING. PT PROVIDED ANTIBIOTIC ORDERED FOR UTI. RIGHT IV SITE SUSPECT PER BURNING, BUT HAS IMPROVED.
[2019-07-22 15:30] VITALS: BP 173/71
--- NOTE | 2019-07-22 16:00 | NUR ---
PT AT REST IN THE BED AT THIS TIME. PT HAS NOT HAD DIARRHEA TODAY YESTERDAY. IVF CONTINUE, PT AMBULATORY TO BR NEEDED.
--- NOTE | 2019-07-22 19:15 | NUR ---
REPORT RECEIVED FROM JOHN HAM. PT RESTING IN BED. RESPIRATIONS EVEN AND UNLABORED ON RA. NO S/S OF DISTRESS AT THIS TIME. SAFETY PRECAUTIONS IN PLACE. WILL CONTINUE TO MONITOR.
[2019-07-22 19:23] VITALS: BP 161/89
--- NOTE | 2019-07-22 19:28 | NUR ---
PT RESTING IN BED. RESPIRATIONS EVEN AND UNLABORED ON RA. LUNGS SOUND CLEAR. PEDAL PULSES WEAK. PT DENIES ANY PAIN OR DISCOMFORT AT THIS TIME. #22 RFA PATENT AND APPEARS HEALTHY. SAFETY PRECAUTIONS IN PLACE. WILL CONTINUE TO MONITOR.
--- NOTE | 2019-07-22 22:50 | NUR ---
HALEY RN AT BEDSIDE STARTING A NEW IV. NEW IV #22 RH, PT TOLERATED WELL. #22 RFA INFILTRATED, REMOVED. SAFETY PRECAUTIONS IN PLACE. WILL CONTINUE TO MONITOR.
[2019-07-23 00:12] VITALS: BP 153/68
--- NOTE | 2019-07-23 00:12 | NUR ---
PT RESTING IN BED, WITH EYES CLOSED. PT EASILY AROUSED. ZOSYN INFUSING #22 RH, PT TOLERATING WELL. SAFETY PRECAUTIONS IN PLACE. WILL CONTINUE TO MONITOR.
--- NOTE | 2019-07-23 03:35 | NUR ---
PT RESTING IN BED. RESPIRATIONS EVEN AND UNLABORED ON RA. NO S/S OF DISTRESS AT THIS TIME. SAFETY PRECAUTIONS IN PLACE. WILL CONTINUE TO MONITOR.
[2019-07-23 05:52] VITALS: BP 167/70
[2019-07-23 07:20] VITALS: BP 158/78
--- NOTE | 2019-07-23 07:20 | NUR ---
ASLEEP ON ROUNDS. AWAKENS TO NAME. ALERT AND ORIENTED X3 ON AWAKENING. RESP NON-LABORED. LUNGS CLEAR THROUGHOUT. ABD SOFTLY DISTENED WITH ACTIVE BOWEL SOUNDS HEARD. IV IN RH WITH NS INFUSING AT 100 ML/HR. IV SITE BENIGN. [id number] PLAN OF CARE. DENIES NEEDS AT THIS TIME.
--- NOTE | 2019-07-23 12:00 | NUR ---
SITTING UP IN CHAIR EATING LUNCH. NO COMPLAINTS VOICED.
[2019-07-23 15:42] VITALS: BP 168/69
--- NOTE | 2019-07-23 16:00 | NUR ---
RESTING IN BED, NAPS ON AND OFF. HAS HAD SEVERAL LOOSE STOOLS TODAY. NO C/O PAIN.
[2019-07-23 19:07] VITALS: BP 161/74
--- NOTE | 2019-07-23 20:05 | NUR ---
PATIENT RESTING IN BED AT THIS TIME. AWAKE ALERT AND ORIENTEDX3. PATIENT WITH POOR APPETITE TONIGHT FOR DINNER-STATES THAT HER DIARRHEA IS BACK. SEVERAL LOOSE BM'S TODAY. STATES THAT SHE IS VOIDING QS IN BR. IV SITE TO RIGHTHHAND INTACT WITH IVF PATENT AND INFUSING ORDERED, MIN ASSIST TO BR TO HAVE ANOTHER SMALL LOOSE BM. MIN ASSIST BACK TO BED. SAFETY PRECAUTIONS REINFORCED. CALL LIGHT INREACH. WILL CONT TO MONITOR.
[2019-07-24] VITALS (8 sets, daily range): BP systolic 143–170; BP diastolic 54–79
--- NOTE | 2019-07-24 00:10 | NUR ---
PATIENT RESTINGINBED-PATIENT C/O ITCHING TO HER CHEST-PATIENT HAS BEEN SCRATCHING IT-SLIGHTLY RED FROM SCRATCHING. PROVIDED WITH BARRIER CREAM AND APPLIED TO AFFECT CHEST AREA. STATES THAT IT FEELS BETTER AFTER BEING APPLIED. ZOSYN HUNG ORDERED AND INFUSING VIA RIGHT HAND SITE. SAFETY PRECAUTIONS REINFORCED. CALL LIGHT IN REACH. WILL CONT TO MONITOR
--- NOTE | 2019-07-24 02:38 | NUR ---
ORTHOSTATIC VS DONE AND CHARTED. PATIENT DENIES ANY WEAKNESS, LIGHTHEADEDNESS OR DIZZINESS WITH CHANGING OF POSITION. PATIENT MEDICATED WITH APRESOLINE 10MG IVP FOR HTN. PATIENT WITH MIN ASSIST TO BR TO VOID AND THEN BACK TO BED. SAFETY PRECAUTIONS REINFORCED. CALL LIGHT INREACH, WILL CONT TO MONITOR.
--- NOTE | 2019-07-24 03:56 | NUR ---
PATIENT ASSIST TO BR AND BACK TO BED. PATIENT C/O RIGHT SIDE BACK/FLANK PAIN-MEDICATED WITH TYLENOL 500MG PO FOR PAIN. SAFETY PRECAUTIONS REINFORCED. CALL LIGHT IN REACH. WILL CONT TO MONITOR. BP DOWN TO 154/63, [id number]
--- NOTE | 2019-07-24 08:00 | NUR ---
ASSESSMENT DONE. PT IS A&O X2. PT IS SITTING IN RECLINER. PT DENIES PAIN AT THIS TIME. RESPS EVEN AND UNLABROED. IVF INFUSING WELL. PT DENIES NEEDS AT THIS TIME. CALL LIGHT IN REACH.
--- NOTE | 2019-07-24 11:36 | NUR ---
PT WENT VIA STRETCHER TO OR BY SHANAE.
--- NOTE | 2019-07-24 12:05 | NUR ---
PT IS SITTING IN RECLINER. PT DENIES PAIN OR NEEDS AT THIS TIME. PT STATED SHE EAT SOME. CALL LIGHT IN REACH.
--- NOTE | 2019-07-24 16:35 | NUR ---
PT IS RESTING IN RECLINER . PT DENIES ANY PAIN OR NEEDS. PT STATED SHE TOOK A SHOWER. CALL LIGHT IN REACH.
--- NOTE | 2019-07-24 19:05 | NUR ---
REPORT FROM TOMER LOPEZ. PT NOTED SITTING UP AT BEDSIDE. ALERT AND ORIENTED. PT DENIES ANY PAIN OR DISCOMFORT. NO APPARENT DISTRESS NOTED. IV SITE APPEARS HEALTHY. DISCUSSED POC. PT VERBALIZED UNDERSTANDING. NO CURRENT WANTS OR NEEDS. CALL LIGHT WITHIN REACH. WILL CONTINUE TO MONITOR.
--- NOTE | 2019-07-24 23:16 | NUR ---
PT RESTING IN BED. WAKES EASILY. NO APPARENT DISTRESS. DENIES ANY CURRENT WANTS OR NEEDS. CALL LIGHT WITHIN REACH. WILL CONTINUE TO MONITOR.
--- NOTE | 2019-07-25 03:20 | NUR ---
PT RESTING IN BED. NO APPARENT DISTRESS NOTED. CALL LIGHT WITHIN REACH. WILL CONTINUE TO MONITOR.
[2019-07-25 03:35] VITALS: BP 153/68
[2019-07-25 04:42] LABS: HEMATOCRIT 28.3 % (37.0-47.0); HEMOGLOBIN 9.9 g/dl (12.0-16.0); IMMATURE GRANULOCYTES 4.7 % (0.0-5.0); MEAN CELL VOLUME 89.3 fL CALC (80.0-100.0); MEAN CORPUSCULAR HGB 31.2 pG CALC (26.0-32.0); NEUT# 6.41 thou/uL (2.00-7.15); RED BLOOD COUNT 3.17 mill/uL (4.20-5.60); RED CELL DISTRI WIDTH 12.7 % (11.5-15.5)
[2019-07-25 05:02] LABS: BUN 7 mg/dL (8-23); BUN/CREATININE RATIO 12 (12-20 (CALC)); CHLORIDE 106 mmol/l (95-108); CREATININE 0.6 mg/dL (0.5-1.0); GFR > 60 ML/MIN (>=60 (CALC)); GFR FOR AFR.AMER. > 60 ML/MIN (>=60 (CALC)); POTASSIUM 2.9 mmol/l (3.5-5.1); SODIUM 136 mmol/l (137-146)
[2019-07-25 05:03] LABS: ANION GAP 11 (6-22 (CALC)); CARBON DIOXIDE 22 mmol/l (22-30); MAGNESIUM 1.3 mg/dL (1.6-2.3)
[2019-07-25 07:09] VITALS: BP 166/65
--- NOTE | 2019-07-25 08:30 | NUR ---
PT IS SITTING IN RECLINER . ASSESSMENT DONE. PT IS A&O X2. PT DENIES PAIN AT THIS TIME. PT STATED SHE HAD A SMALL BM. PT DENIES NEEDS AT THIS TIME. CALL LIGHT IN REACH.
[2019-07-25] MEDS ORDERED: AMOX/K CLAV875 M1 PO (08:57)
[2019-07-25 12:18] VITALS: BP 162/73
--- NOTE | 2019-07-25 12:21 | NUR ---
PT IS SITTING IN RECLINER. PT DENIES PAIN . MEDICATED PT WITH APRESOLINIE FOR BP 162/73. PT DENIES ANY NEEDS AT THIS TIME. CALL LIGHT IN REACH.
--- NOTE | 2019-07-25 16:14 | NUR ---
PT IS SITTTING IN RECLINER. PT WAITING TO BE DC LATER. PT DENIES ANY OTHER NEEDS AT THIS TIME. CALL LIGHT IN REACH.
[2019-07-25 17:21] VITALS: BP 153/59
[2019-07-25 18:18] LABS: ANION GAP 13 (6-22 (CALC)); BUN 9 mg/dL (8-23); BUN/CREATININE RATIO 13 (12-20 (CALC)); CARBON DIOXIDE 22 mmol/l (22-30); CHLORIDE 105 mmol/l (95-108); CREATININE 0.7 mg/dL (0.5-1.0); GFR > 60 ML/MIN (>=60 (CALC)); GFR FOR AFR.AMER. > 60 ML/MIN (>=60 (CALC)); POTASSIUM 3.3 mmol/l (3.5-5.1); SODIUM 137 mmol/l (137-146)
[2019-07-25 18:19] LABS: MAGNESIUM 2.2 mg/dL (1.6-2.3)
--- NOTE | 2019-07-25 18:46 | NUR ---
Discharge instructions given. Patient verbalizes understanding of same. Discharged in stable condition via Wheelchair to Home with family. All belongings sent with pt.
== END 2019-07-25 18:46 | disposition home health service (06) ==
LOC: MS2 14:59
PROVIDERS: Nurse Practitioner Family; ADMIT Internal Medicine; ATTEND Internal Medicine
DX: N17.9 Acute kidney failure, unspecified (principal); K57.32 Diverticulitis of large intestine without perforation or abscess without bleeding; E86.0 Dehydration; N39.0 Urinary tract infection, site not specified; E83.42 Hypomagnesemia; I10 Essential (primary) hypertension; E03.9 Hypothyroidism, unspecified; M19.90 Unspecified osteoarthritis, unspecified site; F41.9 Anxiety disorder, unspecified; F32.9 Major depressive disorder, single episode, unspecified; E78.5 Hyperlipidemia, unspecified; R42 Dizziness and giddiness; B96.20 Unspecified Escherichia coli [E. coli] as the cause of diseases classified elsewhere; Z86.73 Personal history of transient ischemic attack (TIA), and cerebral infarction without residual deficits; N18.3 Chronic kidney disease, stage 3 (moderate); I12.9 Hypertensive chronic kidney disease with stage 1 through stage 4 chronic kidney disease, or unspecified chronic kidney disease; R19.7 Diarrhea, unspecified; R41.3 Other amnesia
CPT/HCPCS: G0378; G0379; J3475